=== PATIENT | male | born 2000 | race Caucasian/White ===

== ENCOUNTER 2019-08-25 17:57 | Emergency (ER) | payer OTHER ==
[~2019-08-25] VITALS: Ht 185.4 cm; Wt 90.1 kg
[2019-08-25 18:00] VITALS: BP 124/70
--- NOTE | 2019-08-25 19:30 | NUR ---
Patient/Caregiver given discharge instructions and they have confirmed that they understand the instructions. Patient ambulatory with steady gait.
== END 2019-08-25 19:31 | disposition home or self-care (01) ==
LOC: ED 19:05
DX: S53.402A Unspecified sprain of left elbow, initial encounter (principal); V49.49XA Driver injured in collision with other motor vehicles in traffic accident, initial encounter; Y93.89 Activity, other specified; Y92.89 Other specified places as the place of occurrence of the external cause; Y99.8 Other external cause status
CPT/HCPCS: 99283